=== PATIENT | male | born 1980 | race Caucasian/White ===

== ENCOUNTER 2023-03-29 12:24 | Emergency (ER) | payer MEDICAID ==
[~2023-03-29] VITALS: Ht 170.2 cm; Wt 66.3 kg
[2023-03-29 12:38] VITALS: BP 149/90; PULSE 119; RESP 20; TEMP 99.5; O2SAT 95
[2023-03-29] MEDS ORDERED: cephALEXin 500 MG CAP PO ONE (14:25)
[2023-03-29] MEDS ORDERED: SULFAMETH/TRIMETH DS 800/160MG 1 TAB PO ONE (14:25)
[2023-03-29] MEDS ORDERED: CEPH-588 PO (14:27)
[2023-03-29] MEDS ORDERED: SULF-59 PO (14:27)
== END 2023-03-29 14:47 | disposition home or self-care (01) ==
LOC: MED 12:24
DX: L03.114 Cellulitis of left upper limb (principal); Z79.899 Other long term (current) drug therapy
CPT/HCPCS: 99283

== ENCOUNTER 2023-04-02 17:56 | Emergency (ER) | payer MEDICAID ==
[~2023-04-02] VITALS: Ht 170.2 cm; Wt 72.6 kg
[~2023-04-02 17:56] MED LIST: CEPH-588 PO; SULF-59 PO
[2023-04-02 18:00] VITALS: BP 131/87; PULSE 114; RESP 16; TEMP 98.2; O2SAT 98
[2023-04-02] MEDS ORDERED: SULF-59 PO (18:14)
[2023-04-02] MEDS ORDERED: CEPH-588 PO (18:14)
[2023-04-02 18:29] VITALS: O2SAT 98
== END 2023-04-02 18:56 ==
LOC: MED 17:56
DX: L02.414 Cutaneous abscess of left upper limb (principal); Z79.899 Other long term (current) drug therapy
CPT/HCPCS: 99283

== ENCOUNTER 2023-05-24 11:54 | Emergency (ER) | payer SELFPAY ==
[~2023-05-24] VITALS: Ht 170.2 cm; Wt 63.5 kg
[2023-05-24 12:04] VITALS: BP 130/90; PULSE 98; RESP 18; TEMP 98.2; O2SAT 100
== END 2023-05-24 12:28 ==
LOC: MED 11:54
DX: Z02.89 Encounter for other administrative examinations (principal); J45.909 Unspecified asthma, uncomplicated; Z79.899 Other long term (current) drug therapy
CPT/HCPCS: 99283